=== PATIENT | male | born 1955 | race Caucasian/White ===

== ENCOUNTER → 2019-12-30 | Outpatient (CLI) | payer SELFPAY ==
[~2019-12-30] MED LIST: VITA100067 PO
== END ==
LOC: M LABSMTC 12:29
PROVIDERS: ATTEND Pediatrics
DX: Z20.828 Contact with and (suspected) exposure to other viral communicable diseases (principal)

== ENCOUNTER → 2020-01-30 | Outpatient (CLI) | payer SELFPAY | LOC: M LABSMTC 11:02 | PROVIDERS: ATTEND Pediatrics | DX: Z20.828 Contact with and (suspected) exposure to other viral communicable diseases (principal) ==

== ENCOUNTER → 2020-03-19 | Outpatient (CLI) | payer SELFPAY | LOC: M LABSMTC 12:35 | PROVIDERS: ATTEND Pediatrics | DX: Z20.822 Contact with and (suspected) exposure to COVID-19 (principal) ==

== ENCOUNTER → 2020-04-02 | Outpatient (CLI) | payer SELFPAY | LOC: M LABSMTC 09:49 | PROVIDERS: ATTEND Pediatrics | DX: Z20.822 Contact with and (suspected) exposure to COVID-19 (principal) ==

== ENCOUNTER → 2020-04-27 | Outpatient (CLI) | payer SELFPAY | LOC: M LABSMTC 13:24 | PROVIDERS: ATTEND Pediatrics | DX: Z11.52 Encounter for screening for COVID-19 (principal) ==

== ENCOUNTER → 2021-02-04 | Outpatient (REF) | LOC: M LABSMTC 09:08 | PROVIDERS: ATTEND Pediatrics | DX: Z11.52 Encounter for screening for COVID-19 (principal); Z20.822 Contact with and (suspected) exposure to COVID-19 ==

== ENCOUNTER 2021-07-30 04:22 | Emergency (ER) | payer MEDICARE, OTHER ==
[~2021-07-30] VITALS: Ht 172.7 cm; Wt 76.0 kg
[2021-07-30] MEDS ORDERED: HEPARIN SOD (PORCINE) 5000UNITS/ML 1ML VIAL/SYRINGE IV ONE (04:55)
[2021-07-30] MEDS ORDERED: CLOPIDOGREL 300 MG TAB (PLAVIX) PO ONE (04:55)
[2021-07-30 04:58] LABS: BASO # 0.1 10^3/uL (0.0-0.2); BASO % 0.8 % (0.0-1.0); EOS # 0.2 10^3/uL (0.0-0.5); EOS % 2.8 % (0.0-3.0); HEMATOCRIT 43.7 % (42.0-52.0); HEMOGLOBIN 14.5 g/dl (13.5-17.5); LYMPH # 1.6 10^3/uL (1.5-5.0); LYMPH % 24.4 % (24.0-44.0); MEAN CORPUSCULAR HEMOGLOBIN 30.6 pg (27.0-33.0); MEAN CORPUSCULAR HGB CONC 33.2 g/dl (32.0-36.5); MEAN CORPUSCULAR VOLUME 92.2 fl (80.0-96.0); MONO # 0.4 10^3/uL (0.0-0.8); MONO % 6.7 % (2.0-8.0); NEUTROPHILS # 4.2 10^3/uL (1.5-8.5); NEUTROPHILS % 64.8 % (36.0-66.0); PLATELET COUNT, AUTOMATED 244 10^3/uL (150-450); RED BLOOD COUNT 4.74 10^6/uL (4.30-6.10); WHITE BLOOD COUNT 6.4 10^3/uL (4.0-10.0)
[2021-07-30] MEDS: MORPHINE 4 MG/ML 1ML VIAL/SYRINGE IV PRN ×3 (04:59→05:36)
[2021-07-30] MEDS: NITROGLYCERIN 0.4 MG SUBL TABLET SL PRN ×2 (05:09→05:42)
[2021-07-30 05:20] LABS: BLOOD UREA NITROGEN 12 MG/DL (7-18); CALCIUM LEVEL 8.2 MG/DL (8.8-10.2); CARBON DIOXIDE LEVEL 21 MEQ/L (21-32); CHLORIDE LEVEL 114 MEQ/L (98-107); CREATININE FOR GFR 0.98 MG/DL (0.70-1.30); GLOMERULAR FILTRATION RATE > 60.0 (>49); GLUCOSE, FASTING 131 MG/DL (70-100); POTASSIUM SERUM 3.7 MEQ/L (3.5-5.1); SODIUM LEVEL 143 MEQ/L (136-145)
[2021-07-30] MEDS ORDERED: TENECTEPLASE 50 MG KIT (TNKase) (J3101 PER 1MG) IV ONE (05:20)
[2021-07-30 05:22] LABS: INR 1.07; PARTIAL THROMBOPLASTIN TIME 33.1 SECONDS (25.9-37.0); PROTHROMBIN TIME 14.3 SECONDS (12.7-14.5)
[2021-07-30 05:25] LABS: CK-MB VALUE MASS 2.9 NG/ML (<3.6); MB/CK RELATIVE INDEX 2.25 (< OR =4)
[2021-07-30 05:30] LABS: RSV AMPLIFICATION NEGATIVE (NEGATIVE)
[2021-07-30] MEDS ORDERED: HEPARIN DRIP 25,000 UNITS in IV 1 EA IV SCH (05:30)
[2021-07-30 06:15] VITALS: BP 117/69
[2021-07-30 06:37] LABS: CK-MB VALUE MASS 10.6 NG/ML (<3.6); MB/CK RELATIVE INDEX 4.31 (< OR =4)
== END 2021-07-30 06:42 | disposition short-term general hospital (02) ==
LOC: M ED 04:22 → EDBD 04:22 → M ED 06:42
DX: I21.29 ST elevation (STEMI) myocardial infarction involving other sites (principal); K21.9 Gastro-esophageal reflux disease without esophagitis
CPT/HCPCS: 71045; 80048; 82550; 82553; 84484; 85025; 85610; 85730; 87631; 93005; 93041; 94760; 96365; 96375; 99285; J1644; J2270; J3101

== ENCOUNTER → 2023-03-13 | Outpatient (CLI) | payer MEDICARE, OTHER | LOC: M WHC 08:51 | PROVIDERS: ATTEND Family Medicine | DX: M85.852 Other specified disorders of bone density and structure, left thigh (principal); M81.0 Age-related osteoporosis without current pathological fracture; Z13.820 Encounter for screening for osteoporosis ==

== ENCOUNTER 2023-08-24 08:53 | Day surgery (SDC) | payer MEDICARE, OTHER ==
[~2023-08-24] VITALS: Ht 172.7 cm; Wt 71.2 kg
[~2023-08-24 08:53] MED LIST changes: +ALEN35TA56 PO; +ATOR80TA59 PO; +CALC-356 PO; +ECOT81TA5 PO; +LOSA50TA28 PO; +OMEP-173 PO; +TAMS1CAP17 PO
[2023-08-24] MEDS: NS 1,000 ML IV ONE (09:47)
[2023-08-24] MEDS ORDERED: LIDOCAINE 2% 100MG/5ML SDV (FOR ANES.) As Ordered ONE (10:21)
[2023-08-24] MEDS ORDERED: propofoL 200 MG/20 ML VIAL As Ordered ONE (10:21)
[2023-08-24 11:05] VITALS: TEMP 97.6
[2023-08-24 11:22] VITALS: BP 99/56; O2SAT 100
== END 2023-08-24 11:24 | disposition home or self-care (01) ==
LOC: M OPP 08:53
PROVIDERS: ATTEND Internal Medicine Gastroenterology
DX: Z12.11 Encounter for screening for malignant neoplasm of colon (principal); Z86.010 Personal history of colon polyps; K64.0 First degree hemorrhoids; K57.30 Diverticulosis of large intestine without perforation or abscess without bleeding; K44.9 Diaphragmatic hernia without obstruction or gangrene; K22.89 Other specified disease of esophagus; R12 Heartburn; Z95.5 Presence of coronary angioplasty implant and graft; Z86.74 Personal history of sudden cardiac arrest; G47.30 Sleep apnea, unspecified; Z87.891 Personal history of nicotine dependence; Z79.02 Long term (current) use of antithrombotics/antiplatelets; Z79.82 Long term (current) use of aspirin; Z79.83 Long term (current) use of bisphosphonates; Z79.891 Long term (current) use of opiate analgesic; Z79.899 Other long term (current) drug therapy
CPT/HCPCS: 43239; 88305; G0105

== ENCOUNTER → 2023-09-05 | Outpatient (REF) | payer MEDICARE, OTHER | LOC: M LAB REF 08:35 | PROVIDERS: ATTEND Physician Assistant | DX: N39.0 Urinary tract infection, site not specified (principal) ==

== ENCOUNTER → 2024-03-09 | Outpatient (CLI) | payer MEDICARE, OTHER | LOC: M WHC 09:52 | PROVIDERS: ATTEND Physician Assistant | DX: Z53.9 Procedure and treatment not carried out, unspecified reason (principal) ==

== ENCOUNTER 2024-03-27 11:01 | Inpatient (IN) | payer MEDICARE, OTHER ==
[~2024-03-27] VITALS: Ht 172.7 cm; Wt 75.0 kg
[2024-03-27] MEDS: MORPHINE 4 MG/ML 1ML VIAL IV PRN ×2 (11:27→14:36)
[2024-03-27 11:48] LABS: BASO % 0.3 % (0.0-1.0); EOS # 0.1 10^3/uL (0.0-0.5); EOS % 0.9 % (0.0-3.0); HEMATOCRIT 41.4 % (42.0-52.0); HEMOGLOBIN 13.6 g/dl (13.5-17.5); LYMPH # 1.1 10^3/uL (1.5-5.0); LYMPH % 9.8 % (24.0-44.0); MEAN CORPUSCULAR HEMOGLOBIN 30.8 pg (27.0-33.0); MEAN CORPUSCULAR HGB CONC 32.9 g/dl (32.0-36.5); MEAN CORPUSCULAR VOLUME 93.7 fl (80.0-96.0); MONO # 0.6 10^3/uL (0.0-0.8); NEUTROPHILS # 9.3 10^3/uL (1.5-8.5); NEUTROPHILS % 83.6 % (36.0-66.0); PLATELET COUNT, AUTOMATED 253 10^3/uL (150-450); RED BLOOD COUNT 4.42 10^6/uL (4.30-6.10); WHITE BLOOD COUNT 11.1 10^3/uL (4.0-10.0)
[2024-03-27 12:11] LABS: LIPASE 35 U/L (12-53)
[2024-03-27 12:13] LABS: ALBUMIN 3.7 G/DL (3.2-5.2); ALKALINE PHOSPHATASE 107 U/L (40-129); ALT/SGPT 25 U/L (7.0-40); AST/SGOT 24 U/L (<34); BILIRUBIN,DIRECT 0.2 MG/DL (<0.4); BILIRUBIN,TOTAL 0.4 MG/DL (0.3-1.2); BLOOD UREA NITROGEN 20 MG/DL (9-23); CALCIUM LEVEL 8.8 MG/DL (8.3-10.6); CARBON DIOXIDE LEVEL 24 MMOL/L (20-31); CHLORIDE LEVEL 107 MMOL/L (98-107); CREATININE FOR GFR 0.84 MG/DL (0.70-1.30); GLOMERULAR FILTRATION RATE > 60.0 (>49); GLUCOSE, FASTING 110 MG/DL (74-106); POTASSIUM SERUM 4.1 MMOL/L (3.5-5.1); SODIUM LEVEL 142 MMOL/L (136-145); TOTAL PROTEIN 6.5 G/DL (5.7-8.2)
[2024-03-27 12:31] LABS: INR 1.12; PROTHROMBIN TIME 14.8 SECONDS (12.5-14.5)
[2024-03-27] MEDS: HYDROMORPHONE HCL 0.5 MG/ 0.5 ML SYRINGE IV PRN (12:33)
[2024-03-27] MEDS ORDERED: SENNA 8.6 MG TAB (SENOKOT) PO PRN (13:50)
[2024-03-27] MEDS ORDERED: ONDANSETRON 4MG 2ML VIAL IV PRN (13:50)
[2024-03-27] MEDS ORDERED: B-1100TA2 PO (14:36)
[2024-03-27] MEDS ORDERED: NITR0.4S14 SL (14:36)
[2024-03-27] MEDS ORDERED: MAGN400C2 PO (14:36)
[2024-03-27] MEDS ORDERED: MULT-90 PO (14:36)
[2024-03-27] MEDS ORDERED: HOME MED LIST COMPLETE! XX SCH (14:40)
[2024-03-27 15:11] LABS: HEMATOCRIT 37.4 % (42.0-52.0); HEMOGLOBIN 12.2 g/dl (13.5-17.5); MEAN CORPUSCULAR HEMOGLOBIN 30.6 pg (27.0-33.0); MEAN CORPUSCULAR HGB CONC 32.6 g/dl (32.0-36.5); MEAN CORPUSCULAR VOLUME 93.7 fl (80.0-96.0); PLATELET COUNT, AUTOMATED 206 10^3/uL (150-450); RED BLOOD COUNT 3.99 10^6/uL (4.30-6.10); WHITE BLOOD COUNT 11.3 10^3/uL (4.0-10.0)
[2024-03-27] MEDS: ENOXAPARIN 40MG/0.4ML SYRINGE (J1650 PER 10MG) SC ONE (15:26)
[2024-03-27 15:42] LABS: ALBUMIN 3.5 G/DL (3.2-5.2); ALKALINE PHOSPHATASE 87 U/L (40-129); ALT/SGPT 23 U/L (7.0-40); AST/SGOT 23 U/L (<34); BILIRUBIN,TOTAL 0.6 MG/DL (0.3-1.2); BLOOD UREA NITROGEN 20 MG/DL (9-23); CALCIUM LEVEL 8.6 MG/DL (8.3-10.6); CARBON DIOXIDE LEVEL 23 MMOL/L (20-31); CHLORIDE LEVEL 108 MMOL/L (98-107); CREATININE FOR GFR 0.79 MG/DL (0.70-1.30); GLOMERULAR FILTRATION RATE > 60.0 (>49); GLUCOSE, FASTING 113 MG/DL (74-106); SODIUM LEVEL 142 MMOL/L (136-145)
[2024-03-27 16:00] VITALS: BP 130/77; TEMP 98.2; O2SAT 98
[2024-03-27] MEDS: CYCLOBENZAPRINE 5MG TABLET PO PRN (17:14)
[2024-03-27] MEDS: MORPHINE 10 MG/ML 1ML VIAL IV PRN (17:14)
[2024-03-27 19:59] VITALS: BP 129/77; TEMP 98.6; O2SAT 94
[2024-03-27] MEDS: DOCUSATE SODIUM 100MG CAPSULE PO SCH (21:38)
[2024-03-28] VITALS (8 sets, daily range): BP systolic 89–126; BP diastolic 52–71; TEMP 97.6–98.4; O2SAT 92–98
[2024-03-28] MEDS: KETOROLAC 30 MG/ML 1ML VIAL IV ONE (08:29)
[2024-03-28] MEDS: PANTOPRAZOLE 40MG VIAL IV SCH (09:46)
[2024-03-28] MEDS ORDERED: fentaNYL 100 MCG/2 ML INJECTION IV PRN ×2 (11:35→16:10)
[2024-03-28] MEDS ORDERED: ROCURONIUM BROMIDE 50MG/5ML VIAL As Ordered ONE (12:25)
[2024-03-28] MEDS ORDERED: propofoL 200 MG/20 ML VIAL As Ordered ONE (12:25)
[2024-03-28] MEDS ORDERED: ONDANSETRON 4MG 2ML VIAL As Ordered ONE (12:26)
[2024-03-28] MEDS ORDERED: LIDOCAINE 2% 100MG/5ML SDV (FOR ANES.) As Ordered ONE (12:26)
[2024-03-28] MEDS ORDERED: fentaNYL 100 MCG/2 ML INJECTION As Ordered ONE (12:27)
[2024-03-28] MEDS ORDERED: MIDAZOLAM INJ 2MG/2ML VIAL As Ordered ONE (12:27)
[2024-03-28] MEDS: MIDAZOLAM INJ 2MG/2ML VIAL IV PRN (12:53)
[2024-03-28] MEDS: dexAMETHasone 10MG/1ML VIAL PRES.FREE PN ONE (13:00)
[2024-03-28] MEDS: LIDOCAINE 1% SDV 5ML VIAL PN ONE (13:00)
[2024-03-28] MEDS: ROPIvacaine 0.5% 30ML VIAL PN ONE (13:00)
[2024-03-28] MEDS: ceFAZolin 2 GM/D5W 50 ML IV BAG As Ordered ONE (13:50)
[2024-03-28] MEDS ORDERED: ePHEDrine SULFATE 25 MG/5 ML(5MG/ML) SYRINGE As Ordered ONE (14:01)
[2024-03-28] MEDS ORDERED: SUGAMMADEX SODIUM 500 MG/5 ML VIAL (BRIDION) As Ordered ONE (15:47)
[2024-03-28] MEDS ORDERED: KETOROLAC 60MG 2ML VIAL As Ordered ONE (15:48)
[2024-03-28] MEDS ORDERED: ONDANSETRON 4MG 2ML VIAL IV PRN (16:10)
[2024-03-28] MEDS ORDERED: oxyCODONE 5MG TAB PO PRN (16:10)
[2024-03-28] MEDS ORDERED: HYDROMORPHONE HCL 0.5 MG/ 0.5 ML SYRINGE IV PRN (16:10)
[2024-03-28] MEDS: ASPIRIN 81MG ENTERIC TABLET PO SCH (17:29)
[2024-03-28] MEDS: TAMSULOSIN 0.4 MG CAP PO SCH (17:30)
[2024-03-28] MEDS: THIAMINE 100 MG TAB PO SCH (17:30)
[2024-03-28] MEDS: LOSARTAN 50MG TABLET PO SCH (17:30)
[2024-03-28] MEDS: ceFAZolin SOD 2 GM in IV 1 EA IV SCH (20:40)
[2024-03-28] MEDS: MAGNESIUM OXIDE 400MG TAB (MAG-OX) PO SCH (20:41)
[2024-03-28] MEDS: MULTIVITAMINS/MINERALS THERAP 1 TAB PO SCH (20:41)
[2024-03-28] MEDS: ATORVASTATIN 20 MG TAB PO SCH (20:41)
[2024-03-29 01:00] VITALS: BP 95/57; TEMP 98.4; O2SAT 96
[2024-03-29 04:00] VITALS: BP 96/57; TEMP 98.1; O2SAT 93
[2024-03-29 07:32] LABS: MEAN CORPUSCULAR HEMOGLOBIN 30.7 pg (27.0-33.0); MEAN CORPUSCULAR HGB CONC 33.1 g/dl (32.0-36.5); MEAN CORPUSCULAR VOLUME 92.7 fl (80.0-96.0); PLATELET COUNT, AUTOMATED 195 10^3/uL (150-450); RED BLOOD COUNT 2.87 10^6/uL (4.30-6.10); WHITE BLOOD COUNT 12.6 10^3/uL (4.0-10.0)
[2024-03-29] MEDS: SENNA 8.6 MG TAB (SENOKOT) PO SCH (07:50)
[2024-03-29] MEDS ORDERED: PERCOCET 5MG/325MG TAB PO PRN ×2 (07:50)
[2024-03-29 07:59] LABS: HEMATOCRIT 26.6 % (42.0-52.0); HEMOGLOBIN 8.8 g/dl (13.5-17.5)
[2024-03-29] MEDS: OMEPRAZOLE 20MG CAP PO SCH (09:42)
[2024-03-29] MEDS: KETOROLAC 30 MG/ML 1ML VIAL IV SCH (09:44)
[2024-03-29 12:00] VITALS: BP 127/68; TEMP 96.8; O2SAT 94
[2024-03-29] MEDS: ACETAMINOPHEN 325 MG TAB PO PRN (17:54)
[2024-03-29 19:34] VITALS: BP 103/56; TEMP 98.4; O2SAT 97
[2024-03-30 04:00] VITALS: BP 125/82; TEMP 97.9; O2SAT 97
[2024-03-30 06:16] LABS: BASO % 0.4 % (0.0-1.0); EOS # 0.3 10^3/uL (0.0-0.5); HEMATOCRIT 24.1 % (42.0-52.0); HEMOGLOBIN 8.1 g/dl (13.5-17.5); LYMPH # 1.2 10^3/uL (1.5-5.0); LYMPH % 14.2 % (24.0-44.0); MEAN CORPUSCULAR HEMOGLOBIN 31.4 pg (27.0-33.0); MEAN CORPUSCULAR HGB CONC 33.6 g/dl (32.0-36.5); MEAN CORPUSCULAR VOLUME 93.4 fl (80.0-96.0); MONO # 0.7 10^3/uL (0.0-0.8); MONO % 7.7 % (2.0-8.0); NEUTROPHILS # 6.3 10^3/uL (1.5-8.5); NEUTROPHILS % 74.5 % (36.0-66.0); PLATELET COUNT, AUTOMATED 184 10^3/uL (150-450); RED BLOOD COUNT 2.58 10^6/uL (4.30-6.10); WHITE BLOOD COUNT 8.4 10^3/uL (4.0-10.0)
[2024-03-30 06:42] LABS: BLOOD UREA NITROGEN 22 MG/DL (9-23); CALCIUM LEVEL 8.2 MG/DL (8.3-10.6); CARBON DIOXIDE LEVEL 27 MMOL/L (20-31); CHLORIDE LEVEL 109 MMOL/L (98-107); CREATININE FOR GFR 0.88 MG/DL (0.70-1.30); GLOMERULAR FILTRATION RATE > 60.0 (>49); GLUCOSE, FASTING 96 MG/DL (74-106); POTASSIUM SERUM 4.2 MMOL/L (3.5-5.1); SODIUM LEVEL 145 MMOL/L (136-145)
[2024-03-30] MEDS: FERROUS SULFATE 325MG TAB PO SCH (08:46)
[2024-03-30 12:00] VITALS: BP 112/68; TEMP 98.1; O2SAT 97
[2024-03-30] MEDS: KETOROLAC 30 MG/ML 1ML VIAL IV SCH (17:17)
[2024-03-30] MEDS: OMEPRAZOLE 20MG CAP PO SCH (20:37)
[2024-03-30 20:57] VITALS: BP 107/62; TEMP 96.7; O2SAT 98
[2024-03-31] VITALS (8 sets, daily range): BP systolic 113–136; BP diastolic 73–84; TEMP 97.7–98.4; O2SAT 96–97
[2024-03-31 06:41] LABS: BASO # 0.1 10^3/uL (0.0-0.2); BASO % 0.7 % (0.0-1.0); EOS # 0.5 10^3/uL (0.0-0.5); EOS % 7.2 % (0.0-3.0); HEMATOCRIT 23.5 % (42.0-52.0); HEMOGLOBIN 7.8 g/dl (13.5-17.5); LYMPH # 1.4 10^3/uL (1.5-5.0); LYMPH % 20.1 % (24.0-44.0); MEAN CORPUSCULAR HEMOGLOBIN 30.8 pg (27.0-33.0); MEAN CORPUSCULAR HGB CONC 33.2 g/dl (32.0-36.5); MEAN CORPUSCULAR VOLUME 92.9 fl (80.0-96.0); MONO # 0.5 10^3/uL (0.0-0.8); MONO % 7.1 % (2.0-8.0); NEUTROPHILS # 4.5 10^3/uL (1.5-8.5); NEUTROPHILS % 64.5 % (36.0-66.0); PLATELET COUNT, AUTOMATED 201 10^3/uL (150-450); RED BLOOD COUNT 2.53 10^6/uL (4.30-6.10); WHITE BLOOD COUNT 6.9 10^3/uL (4.0-10.0)
[2024-03-31 07:16] LABS: BLOOD UREA NITROGEN 21 MG/DL (9-23); CALCIUM LEVEL 7.7 MG/DL (8.3-10.6); CARBON DIOXIDE LEVEL 25 MMOL/L (20-31); CHLORIDE LEVEL 113 MMOL/L (98-107); CREATININE FOR GFR 0.85 MG/DL (0.70-1.30); GLOMERULAR FILTRATION RATE > 60.0 (>49); GLUCOSE, FASTING 123 MG/DL (74-106); POTASSIUM SERUM 4.2 MMOL/L (3.5-5.1); SODIUM LEVEL 143 MMOL/L (136-145)
[2024-03-31] MEDS: KETOROLAC 30 MG/ML 1ML VIAL IV SCH (08:49)
[2024-03-31 13:54] LABS: HEMATOCRIT 28.6 % (42.0-52.0); HEMOGLOBIN 9.7 g/dl (13.5-17.5)
[2024-04-01 05:02] VITALS: BP 132/82; TEMP 97.9; O2SAT 95
[2024-04-01 07:09] LABS: BASO % 0.3 % (0.0-1.0); EOS # 0.4 10^3/uL (0.0-0.5); EOS % 6.1 % (0.0-3.0); HEMATOCRIT 27.8 % (42.0-52.0); HEMOGLOBIN 9.5 g/dl (13.5-17.5); LYMPH # 1.1 10^3/uL (1.5-5.0); LYMPH % 14.7 % (24.0-44.0); MEAN CORPUSCULAR HEMOGLOBIN 31.4 pg (27.0-33.0); MEAN CORPUSCULAR HGB CONC 34.2 g/dl (32.0-36.5); MEAN CORPUSCULAR VOLUME 91.7 fl (80.0-96.0); MONO # 0.5 10^3/uL (0.0-0.8); MONO % 6.3 % (2.0-8.0); NEUTROPHILS # 5.2 10^3/uL (1.5-8.5); NEUTROPHILS % 72.3 % (36.0-66.0); PLATELET COUNT, AUTOMATED 238 10^3/uL (150-450); RED BLOOD COUNT 3.03 10^6/uL (4.30-6.10); WHITE BLOOD COUNT 7.2 10^3/uL (4.0-10.0)
[2024-04-01 07:40] LABS: BLOOD UREA NITROGEN 16 MG/DL (9-23); CALCIUM LEVEL 8.1 MG/DL (8.3-10.6); CARBON DIOXIDE LEVEL 25 MMOL/L (20-31); CHLORIDE LEVEL 112 MMOL/L (98-107); CREATININE FOR GFR 0.77 MG/DL (0.70-1.30); GLOMERULAR FILTRATION RATE > 60.0 (>49); GLUCOSE, FASTING 95 MG/DL (74-106); POTASSIUM SERUM 4.6 MMOL/L (3.5-5.1); SODIUM LEVEL 145 MMOL/L (136-145)
[2024-04-01] MEDS ORDERED: FERR1TAB8 PO (09:06)
[2024-04-01] MEDS ORDERED: PERCOCET PO (09:06)
[2024-04-01] MEDS ORDERED: ASPI-1 PO (09:06)
[2024-04-01 09:36] VITALS: BP 132/82
== END 2024-04-01 12:10 | disposition home or self-care (01) | DRG 481 ==
LOC: EDBD 11:01 → M ED 11:01 → M ED INP 14:14 → M MS5PR 15:55
PROVIDERS: ADMIT Internal Medicine; ATTEND Internal Medicine Nephrology
PROC: 0QSF04Z Reposition Left Patella with Internal Fixation Device, Open Approach (ICD-10-PCS; 2024-03-28)
PROC: 30233J1 Transfusion of Nonautologous Serum Albumin into Peripheral Vein, Percutaneous Approach (ICD-10-PCS; 2024-03-28)
PROC: 0QSC36Z Reposition Left Lower Femur with Intramedullary Internal Fixation Device, Percutaneous Approach (ICD-10-PCS; principal; 2024-03-28 12:00)
PROC: 30233N1 Transfusion of Nonautologous Red Blood Cells into Peripheral Vein, Percutaneous Approach (ICD-10-PCS; 2024-03-31)
DX: S72.352A Displaced comminuted fracture of shaft of left femur, initial encounter for closed fracture (principal); S82.045A Nondisplaced comminuted fracture of left patella, initial encounter for closed fracture; D62 Acute posthemorrhagic anemia; I10 Essential (primary) hypertension; E78.5 Hyperlipidemia, unspecified; I25.10 Atherosclerotic heart disease of native coronary artery without angina pectoris; I25.2 Old myocardial infarction; N40.0 Benign prostatic hyperplasia without lower urinary tract symptoms; M81.0 Age-related osteoporosis without current pathological fracture; K21.9 Gastro-esophageal reflux disease without esophagitis; Z95.5 Presence of coronary angioplasty implant and graft; Z87.891 Personal history of nicotine dependence; Z79.82 Long term (current) use of aspirin; Z79.899 Other long term (current) drug therapy; W11.XXXA Fall on and from ladder, initial encounter; Y92.018 Other place in single-family (private) house as the place of occurrence of the external cause; Y93.H9 Activity, other involving exterior property and land maintenance, building and construction; Y99.8 Other external cause status; R25.2 Cramp and spasm

== ENCOUNTER → 2024-04-11 | Outpatient (CLI) | payer MEDICARE, OTHER ==
[~2024-04-11] MED LIST changes: +ASPI-1 PO; +B-1100TA2 PO; +FERR1TAB8 PO; +MAGN400C2 PO; +MULT-90 PO; +NITR0.4S14 SL; +PERCOCET PO
== END ==
LOC: M SOG 07:52
PROVIDERS: ATTEND Physician Assistant
DX: S82.042A Displaced comminuted fracture of left patella, initial encounter for closed fracture (principal); S72.492A Other fracture of lower end of left femur, initial encounter for closed fracture

== ENCOUNTER → 2024-05-04 | Outpatient (CLI) | payer MEDICARE, OTHER | LOC: M SOG 07:49 | PROVIDERS: ATTEND Orthopaedic Surgery | DX: S82.042A Displaced comminuted fracture of left patella, initial encounter for closed fracture (principal); W18.30XA Fall on same level, unspecified, initial encounter; Y92.009 Unspecified place in unspecified non-institutional (private) residence as the place of occurrence of the external cause ==

== ENCOUNTER → 2024-08-24 | Outpatient (CLI) | payer MEDICARE, OTHER | LOC: M SOG 07:13 | PROVIDERS: ATTEND Orthopaedic Surgery | DX: S82.042A Displaced comminuted fracture of left patella, initial encounter for closed fracture (principal); S72.492A Other fracture of lower end of left femur, initial encounter for closed fracture; W18.30XA Fall on same level, unspecified, initial encounter; Y92.009 Unspecified place in unspecified non-institutional (private) residence as the place of occurrence of the external cause ==

== ENCOUNTER → 2024-12-07 | Outpatient (CLI) | payer MEDICARE, OTHER | LOC: M SOG 07:26 | PROVIDERS: ATTEND Physician Assistant | DX: S72.492D Other fracture of lower end of left femur, subsequent encounter for closed fracture with routine healing (principal); S82.042D Displaced comminuted fracture of left patella, subsequent encounter for closed fracture with routine healing; W18.30XD Fall on same level, unspecified, subsequent encounter ==